=== PATIENT | male | born 1975 | race Caucasian/White ===

== ENCOUNTER 2024-01-02 09:07 | Emergency (ER) | payer MEDICARE, MEDICAID ==
[2024-01-02] MEDS: Tetracaine HCl/PF 0.5% 4 ML Bottle EYERT ONE (09:30)
[2024-01-02] MEDS ORDERED: Gentamicin 0.3% Ophth Soln 5 ML Bottle ONE (09:45)
[2024-01-02] MEDS: Distilled Water Ophth Irrig Soln 120 ML Bottle EYERT ONE (10:05)
[2024-01-02] MEDS: Fluorescein 1 MG Ophth Strip EYERT ONE (10:06)
== END 2024-01-02 10:00 | disposition home or self-care (01) ==
LOC: LB.ED 09:07
DX: H10.9 Unspecified conjunctivitis (principal)
CPT/HCPCS: 99282; A9270-GY

== ENCOUNTER 2024-04-04 18:40 | Emergency (ER) | payer MEDICARE, MEDICAID ==
[2024-04-04] MEDS ORDERED: prednisoLONE Acetate 1% Ophth Susp 5 ML Bottle ONE (19:45)
[2024-04-04] MEDS ORDERED: Ciprofloxacin 0.3% Ophth Soln 2.5 ML Bottle ONE (19:45)
[2024-04-04 21:30] VITALS: BP 108/70; PULSE 67
== END 2024-04-04 20:00 | disposition home or self-care (01) ==
LOC: LB.ED 18:40
DX: T15.01XA Foreign body in cornea, right eye, initial encounter (principal); Z88.8 Allergy status to other drugs, medicaments and biological substances; Z79.899 Other long term (current) drug therapy; W44.8XXA Other foreign body entering into or through a natural orifice, initial encounter
CPT/HCPCS: 65220; 99283; 99283-25; A9270-GY